=== PATIENT | female | born 1975 ===

== ENCOUNTER 2020-12-23 06:00 | Day surgery (SDC) | payer OTHER ==
[~2020-12-23 06:00] MED LIST: D3 + K2 DOTS 11 EACH PO; FLONASE16 GM; STOOL SOFTENER50 MG PO
[2020-12-23] MEDS ORDERED: PERCOCET 5-3251 EACH PO (12:08)
== END 2020-12-23 17:00 | disposition home or self-care (01) ==
LOC: CIR.AMB 06:00
PROVIDERS: ATTEND Surgery
DX: K64.8 Other hemorrhoids (principal); K64.4 Residual hemorrhoidal skin tags; Z20.822 Contact with and (suspected) exposure to COVID-19